=== PATIENT | female | born 1950 | race Caucasian/White ===

== ENCOUNTER 2020-02-23 12:28 | Outpatient (CLI) | payer MEDICARE, SELFPAY ==
--- NOTE | ~2020-02-23 | CT_ITS ---
EXAMINATION: CT abdomen wo con DATE: 02/23/2020 13:13 INDICATION: Abnormal findings on diagnostic imaging of abdomen. Back pain. TECHNIQUE: Computed tomography (CT) of the abdomen was performed without intravenous contrast. Automa florentin exposure control and iterative reconstruction technique were employed. The dose-length product wa s 379.69 mGy-cm. COMPARISON: Chest CT 04/04/2010 FINDINGS: The visualized portions of the lung bases demonstrate mild atelectasis. There is mild bronc hiectasis in the inferior lungs. No pleural effusion. The heart size is normal. No pericardial effusi on. The liver and gallbladder are normal. Calcifications in the spleen are consistent with old granul omatous disease. The pancreas, adrenal glands, and kidneys are normal. There is no urolithiasis. Ther e are no dilated loops of bowel. There is calcified atherosclerosis of the aorta. No aneurysm. There are no pathologically enlarged lymph nodes. There is no free intraperitoneal fluid. There is severe l umbar and thoracic spondylosis. There are changes of posterior fusion procedure from T10 to T12 with pedicle screws, bone graft, and T11 laminectomy. IMPRESSION: 1. Severe thoracic and lumbar spondylosis. Reviewed, dictated and finalized at location A.
== END 2020-02-23 12:29 | disposition home or self-care (01) ==
PROVIDERS: PCP Internal Medicine; Visit Provider Internal Medicine
DX: M47.816 Spondylosis without myelopathy or radiculopathy, lumbar region (principal); J47.9 Bronchiectasis, uncomplicated
CPT/HCPCS: 74150

== ENCOUNTER 2020-08-16 10:30 | Outpatient (CLI) | payer MEDICARE, SELFPAY ==
--- NOTE | ~2020-08-16 | MM_ITS ---
EXAMINATION: MM screening kaitlin BI w vane HISTORY: Screening TECHNIQUE: Craniocaudal and mediolateral oblique 3-D tomosynthesis images were obtained and synthetic 2-D images were generated. CAD analysis was submitted and interpreted. COMPARISON: Comparison to multiple prior studies sequentially, with oldest reviewed study dated 05/2014. BREAST PARENCHYMAL COMPOSITION: There are scattered areas of fibroglandular density. FINDINGS: There is no evidence of suspicious mass, calcification, or architectural distortion to sugg est malignancy in either breast. There has been no suspicious interval change. IMPRESSION: 1. No mammographic evidence of malignancy. 2. Recommend routine screening mammography in one year. BI-RADS Category 1: Negative Reviewed, dictated and finalized at location A. [facility]
--- NOTE | ~2020-08-16 | DEXA_ITS ---
Bone Density Report Name: Keila RUFF Age: 70 Sex: Female Ethnicity: White Date of : 1950 Indication: postmenopausal; height loss; hysterectomy; Referring Provider: ELDER DONOVAN Study: Bone densitometry was performed. Exam Date: August 16, 2020 Accession number: [id number] Bone Density: Region BMD T-score Z-score Classification AP Spine (L2, L3, L4) 1.413 3.0 5.3 Normal Femoral Neck (Left) 0.744 -0.9 0.9 Normal Total Hip (Left) 0.893 -0.4 1.2 Normal Total Hip Bilateral Avg 0.881 -0.5 1.1 Normal Femoral Neck (Right) 0.675 -1.6 0.3 Osteopenia Total Hip (Right) 0.868 -0.6 1.0 Normal World Health Organization criteria for BMD impression classify patients as: Normal (T-score at or above -1.0), Osteopenia (T-score between -1.0 and -2.5), or Osteoporosis (T-score at or below -2.5). 10-year Fracture Risk(1): Major Osteoporotic Fracture 10% Hip Fracture 1.6% Reported Risk Factors: [place] (), Neck BMD=0.675, BMI=29.9 (1) FRAX(R) Version 3.08. Fracture probability calculated for an untreated patient. Fracture probability may be lower if the patient has received treatment. Clinical Information Provided by Patient: Has the following medical conditions: Hysterectomy Patient maximum height was 66 Menopause Age: 31 Onset of menses at age 12 Number of children 3 Impression: The patient has low bone mass, based on the Right Femoral Neck T-score. The patient has an estimated ten-year risk of hip fracture of 1.6% and an estimated ten-year risk of major fracture of 10%, based on the WHO FRAX algorithm. Discussion: BONE DENSITY IS LOW AT ONE OR MORE SKELETAL SITES. This patient's lowest T-score is low at one or more skeletal sites. It meets the World Health Organization's (WHO) criteria for ?low bone mass? (T-score between -1.0 and -2.5). The patient's 10-year risk of fracture as calculated by FRAX is less than the threshold where pharmacological therapy is recommended by the National Osteoporosis Foundation (NOF). However, all treatment decisions require clinical judgment and consideration of individual patient factors, including patient preferences, comorbidities, previous drug use, risk factors not captured in the FRAX model (e.g., frailty, falls, vitamin D deficiency, increased bone turnover, interval significant decline in bone density) and possible under or overestimation of fracture risk by FRAX. The patient should follow a healthful lifestyle (good nutrition with adequate calcium and vitamin D, and appropriate weight-bearing exercise). Follow-Up: Consider repeating this study in 2 to 3 years to reassess this patient's status, or sooner if there is some new clinical indication. Reported by: DAVID on 08/16/2020 11:10:00 AM. Re
== END 2020-08-16 10:31 | disposition home or self-care (01) ==
PROVIDERS: PCP Internal Medicine; Visit Provider Obstetrics & Gynecology Gynecology
DX: Z12.31 Encounter for screening mammogram for malignant neoplasm of breast (principal); Z78.0 Asymptomatic menopausal state; M85.851 Other specified disorders of bone density and structure, right thigh
CPT/HCPCS: 77063; 77067; 77080

== ENCOUNTER 2020-12-20 10:27 | Outpatient (CLI) | payer MEDICARE, SELFPAY ==
--- NOTE | ~2020-12-20 | MR_ITS ---
EXAMINATION: MR foot RT wo con DATE: 12/20/2020 12:18 INDICATION: Right foot pain. TECHNIQUE: Magnetic resonance imaging (MRI) of the right foot was performed without intravenous contr ast. Sequences included sagittal T1-weighted FSE and STIR FSE, long-axis PD-weighted FS FSE and PD-we ighted FSE, and short-axis PD-weighted FS FSE and T1-weighted FSE. COMPARISON: None FINDINGS: There is mild hallux valgus. There is a low-signal transverse fracture of proximal diaphysi s of second metatarsal with surrounding bone marrow edema in near-anatomic alignment. There is severe osteoarthritis of second and third tarsometatarsal joints. There is severe osteoarthritis between cu boid and lateral cuneiform. There is severe osteoarthritis at medial naviculocuneiform joint. There i s mild osteoarthritis of many of the other midfoot joints and interphalangeal joints. There is modera te osteoarthritis of first metatarsophalangeal joint. Lisfranc ligament is intact. There is no joint effusion. The flexor and extensor tendons are normal. The muscle bellies are normal. IMPRESSION: 1. Stress fracture of proximal diaphysis of second metatarsal. 2. Polyarticular osteoarthritis. Reviewed, dictated and finalized at location A.
== END 2020-12-20 10:28 | disposition home or self-care (01) ==
PROVIDERS: PCP Internal Medicine; Visit Provider Internal Medicine
DX: M79.673 Pain in unspecified foot (principal); M84.374A Stress fracture, right foot, initial encounter for fracture; M19.071 Primary osteoarthritis, right ankle and foot
CPT/HCPCS: 73718

== ENCOUNTER → 2021-06-26 03:46 | Outpatient (CLI) | payer MEDICARE, SELFPAY ==
[2021-06-27 17:42] LABS: SARS-CoV-2 RNA PCR Negative
== END ==
PROVIDERS: PCP Internal Medicine; Visit Provider Internal Medicine
DX: R68.89 Other general symptoms and signs (principal); Z20.822 Contact with and (suspected) exposure to COVID-19
CPT/HCPCS: C9803; U0003; U0005

== ENCOUNTER → 2021-07-01 15:18 | Outpatient (CLI) | payer MEDICARE, SELFPAY ==
--- NOTE | ~2021-07-01 | XR_ITS ---
EXAMINATION: XR chest 2V 07/01/2021 15:48 INDICATION: Bronchitis PROCEDURE: 2 view chest COMPARISON: 07/15/2013 FINDINGS: The lungs are clear. The cardiomediastinal silhouette is within normal limits. There are no pleural effusions. There is no pneumothorax suspected. There is dextrocurvature of the thoracic spine. There are fixation spinal screws at the thoracolumbar junction, consistent with fusion. IMPRESSION: 1: NO ACUTE CARDIOPULMONARY DISEASE. Reviewed, dictated and finalized at location A.
== END ==
PROVIDERS: PCP Internal Medicine; Visit Provider Internal Medicine
DX: J40 Bronchitis, not specified as acute or chronic (principal)
CPT/HCPCS: 71046

== ENCOUNTER 2023-05-29 07:43 | Outpatient (CLI) | payer MEDICARE, SELFPAY ==
--- NOTE | ~2023-05-29 | MM_ITS ---
EXAMINATION: MM screening kaitlin BI w vane HISTORY: Screening TECHNIQUE: Craniocaudal and mediolateral oblique 3-D tomosynthesis images were obtained and synthetic 2-D images were generated. CAD analysis was submitted and interpreted. COMPARISON: Comparison to multiple prior studies sequentially, with oldest reviewed study dated 01/22. BREAST PARENCHYMAL COMPOSITION: Breast composed of scattered areas of fibroglandular density FINDINGS: There is no evidence of suspicious mass, calcification, or architectural distortion to sugg est malignancy in either breast. There has been no suspicious interval change. IMPRESSION: 1. No mammographic evidence of malignancy. 2. Recommend routine screening mammography in one year. BI-RADS Category 1: Negative Reviewed, dictated and finalized at location A.
== END 2023-05-29 07:44 | disposition home or self-care (01) ==
LOC: ANHIMG 07:47
PROVIDERS: PCP Nurse Practitioner; Visit Provider Nurse Practitioner
DX: Z12.31 Encounter for screening mammogram for malignant neoplasm of breast (principal)
CPT/HCPCS: 77063; 77067